=== PATIENT | female | born 1990 | race Caucasian/White ===

== ENCOUNTER 2017-10-15 14:51 | Inpatient (IN) | payer OTHER ==
--- NOTE | 2017-10-15 15:21 | EDPHY ---
H & P Time Seen by Provider: 10/15/17 15:00 HPI/ROS: CHIEF COMPLAINT: M1 Hold HISTORY OF PRESENT ILLNESS: This patient is a 27 y/o female with history of depression arriving with police on an M1 hold for psychiatric evaluation. Per the M1 report, the patient went to mental health services and seemed manic and gravely disabled, and had carved "HELP" into her skin. When asked about her history, she stats she has a "very well documented track record" of asking mental elda services for assistance, and is unwilling to provide further information. 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 She seems surprised to learn that she is on a mental health hold, but continues to repeat "thank you so much for asking" or "thank you so much for letting me know" after nearly every sentence. She does use marijuana but denies recent alcohol or illicit drug use. She denies any history of admissions due to psychiatric illness. She denies suicidal or homicidal ideation. No recent illness or further complaints. REVIEW OF SYSTEMS: A 10 point review of systems was performed and is negative with the exception of the elements mentioned in the history of present illness. Past Medical/Surgical History: Anxiety, PTSD, Depression, ADHD. 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 Occasional cigarette use. Marijuana use. No illicit drug use. Physical Exam: General Appearance: Alert, anxious Eyes: Pupils equal and round, no conjunctival pallor or injection ENT, Mouth: Mucous membranes moist Neck: Normal inspection Respiratory: Lungs are clear to auscultation Cardiovascular: Regular rate and rhythm Gastrointestinal: Abdomen is soft and non-tender Neurological: A&O, nonfocal exam Skin: Warm and dry, no rash Extremities: Nontender, no pedal edema Psychiatric: Pressured speech, tangential thought processes Constitutional: Initial Vital Signs Temperature (C) 37.1 C 10/15/17 14:51 Heart Rate 90 10/15/17 14:51 Respiratory Rate 14 10/15/17 14:51 Blood Pressure 153/87 H 10/15/17 14:51 O2 Sat (%) 98 10/15/17 14:51 O2 Delivery Mode Room Air Allergies/Adverse Reactions: animal dander Allergy (Verified 10/15/17 14:58) Home Medications: Medication Instructions Recorded Fexofenadine/Pseudoephedrine 1 each PO DAILY PRN 10/15/17 [Isabel-D 12 Hour Tablet] Herbals/Supplements -Info Only 1 ea PO DAILY 10/15/17 Ibuprofen [Motrin (*)] 200 - 400 mg PO Q6H PRN 10/15/17 Levonorgestrel [Kyleena] 1 each IY AD 10/15/17 Melatonin [Melatonin 3 MG (*)] 3 mg PO HS PRN 10/15/17 Sertraline HCl [Zoloft 100mg (*)] 150 mg PO DAILY 10/15/17 clonazePAM [Klonopin (*)] 0.5 mg PO BID PRN 10/15/17 Medical Decision Making ED Course/Re-evaluation: 27 y/o female on M1 Hold by police presents for psychiatric evaluation. She has pressured speech and tangential thought processes during my interview. Plan for UA tox screen, labs including CBC, chemistries, EtOH. Plan for mental health evaluation following medical clearance. 16:00 UA positive for marijuana. 16 15: The patient is becoming quite agitated. Zyprexa 5 mg ODT given. 2100: seen by mental health, plan for admission to . Ativan 1mg orally given for agitation prior to transfer. - Data Points Laboratory Results: Laboratory Results 10/15/17 16:09 10/15/17 16:09 10/15/17 10/15/17 10/15/17 16:09 16:09 15:15 WBC 8.98 10^3/uL 10^3/uL (3.80-9.50) RBC 4.92 10^6/uL 10^6/uL (4.18-5.33) Hgb 14.1 g/dL g/dL (12.6-16.3) Hct 42.6 % % (38.0-47.0) MCV 86.6 fL fL (81.5-99.8) MCH 28.7 pg pg (27.9-34.1) MCHC 33.1 g/dL g/dL (32.4-36.7) RDW 12.7 % % (11.5-15.2) Plt Count 323 10^3/uL 10^3/uL (150-400) MPV 9.2 fL fL (8.7-11.7) Neut % (Auto) 66.3 % % (39.3-74.2) Lymph % (Auto) 19.4 % % (15.0-45.0) [place] % (Auto) 11.7 % % (4.5-13.0) Eos % (Auto) 1.2 % % (0.6-7.6) Baso % (Auto) 0.7 % % (0.3-1.7) Nucleat RBC Rel Count 0.0 % % (0.0-0.2) Absolute Neuts (auto) 5.96 10^3/uL 10^3/uL (1.70-6.50) Absolute Lymphs (auto) 1.74 10^3/uL 10^3/uL (1.00-3.00) Absolute Monos (auto) 1.05 10^3/uL H 10^3/uL (0.30-0.80) Absolute Eos (auto) 0.11 10^3/uL 10^3/uL (0.03-0.40) Absolute Basos (auto) 0.06 10^3/uL 10^3/uL (0.02-0.10) Absolute Nucleated RBC 0.00 10^3/uL 10^3/uL (0-0.01) Immature Gran % 0.7 % % (0.0-1.1) Immature Gran # 0.06 10^3/uL 10^3/uL (0.00-0.10) Sodium 145 mEq/L mEq/L (135-145) Potassium 3.9 mEq/L mEq/L (3.5-5.2) Chloride 103 mEq/L mEq/L (97-110) Carbon Dioxide 19 mEq/l L mEq/l (22-31) Anion Gap 23 mEq/L H mEq/L (8-16) BUN 9 mg/dL mg/dL (7-23) Creatinine 0.6 mg/dL mg/dL (0.6-1.0) Estimated GFR > 60 Glucose 91 mg/dL mg/dL (70-100) Calcium 9.5 mg/dL mg/dL (8.5-10.4) Urine Opiates Screen NEGATIVE (NEGATIVE) Urine Barbiturates NEGATIVE (NEGATIVE) Ur Phencyclidine Scrn NEGATIVE (NEGATIVE) Ur Amphetamine Screen NEGATIVE (NEGATIVE) U Benzodiazepines Scrn NEGATIVE (NEGATIVE) Urine Cocaine Screen NEGATIVE (NEGATIVE) U Marijuana (THC) Screen NON-NEGATIVE H (NEGATIVE) Ethyl Alcohol < 10 mg/dL mg/dL (0-10) Medications Given: Discontinued Medications Lorazepam (Ativan) 1 mg PO EDNOW ONE Stop: 10/15/17 21:46 Last Admin: 10/15/17 21:47 Dose: 1 mg Olanzapine (Zyprexa Zydis) 5 mg PO EDNOW ONE Stop: 10/15/17 16:15 Last Admin: 10/15/17 16:50 Dose: Not Given Olanzapine (Zyprexa Im Injection) 10 mg IM EDNOW ONE Stop: 10/15/17 16:50 Last Admin: 10/15/17 16:55 Dose: 10 mg Departure - Departure Disposition: [facility] IP Clinical Impression: Kristi Condition: Fair Referrals: Patient,NotPresent [Unknown] - As per Instructions Report Scribed for: Alesia Maldonado Report Scribed by: Clau Salazar Date of Report: 10/15/17 Time of Report: 15:44 Physician Review and Approval Statement: 10/15/17 15:44 Portions of this note were transcribed by a medical record specialist. I personally performed a history, physical exam, medical decision making, and confirmed accuracy of information the transcribed note.
[2017-10-15] MEDS ORDERED: OLANZapine DISINTEGR 5 MG TAB PO ONE (16:14)
[2017-10-15 16:19] LABS: PLATELET COUNT 323 10^3/uL (150-400)
[2017-10-15] MEDS ORDERED: OLANZapine 10 MG/2 ML VIAL IM ONE (16:49)
[2017-10-15] MEDS ORDERED: LORazepam 1 MG TAB PO ONE (21:45)
[2017-10-15] MEDS ORDERED: NICOTINE POLACRILEX 2 MG GUM B PRN (22:57)
[2017-10-15] MEDS ORDERED: LORazepam 0.5 MG TAB PO PRN (22:57)
[2017-10-15] MEDS ORDERED: MAGNESIUM HYDROXIDE 30 ML UDCUP PO PRN (22:57)
[2017-10-15] MEDS ORDERED: MAG HYDROX/AL HYDROX/SIMETH 30 ML UDCUP PO PRN (22:59)
[2017-10-15] MEDS ORDERED: OLANZapine DISINTEGR 10 MG TAB PO PRN (23:00)
[2017-10-16] MEDS ORDERED: MELATONIN 3 MG TAB PO PRN (08:41)
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
[2017-10-16] MEDS: ACETAMINOPHEN 325 MG TAB PO PRN (23:46)
[2017-10-17] MEDS: clonazePAM 0.5 MG TAB PO PRN ×2 (02:13→09:32)
[2017-10-17 06:40] VITALS: TEMP 98; O2SAT 95
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
[2017-10-17] MEDS ORDERED: PROPOFOL/EMULSION 500 MG/50 ML BOTTLE IV ONE (18:07)
[2017-10-17] MEDS ORDERED: fentaNYL 100 MCG/2 ML INJ ONE ×2 (18:08)
[2017-10-17] MEDS ORDERED: ONDANSETRON 4 MG/2 ML VIAL ONE (18:14)
[2017-10-17] MEDS ORDERED: LIDOCAINE 2% 5 ML SDV ONE (18:14)
[2017-10-17] MEDS ORDERED: ROCURONIUM 50 MG/5 ML VIAL ONE (18:14)
[2017-10-17] MEDS ORDERED: OLANZapine DISINTEGR 10 MG TAB PO SCH (21:00)
[2017-10-18 06:17] VITALS: BP 148/90; PULSE 112; RESP 18
[2017-10-18] MEDS: ACETAMINOPHEN 325 MG TAB PO PRN (09:23)
--- NOTE | 2017-10-18 18:28 | BDS ---
[f rep st] BEHAVIORAL HEALTH DISCHARGE SUMMARY REASON FOR ADMISSION: Patient is a 27-year-old female with a history of anxiety and possib le cluster B personality characteristics. She was referred on an M1 hold from the [facility] at [facility] after presenting there in what appeared to be a manic state. She had been recently out of town at a meeting and stated that she had stayed up for 4 nights in a row and had got ten extremely excited about the subject matter and about possibilities for the future, and developed what appeared to be her first episode of agueda. When she returned home, her roommate and friends not iced that she was not herself and brought her to the [facility] where they stated she appeared manic, placed her on an M1 hold, and referred her to the [facility] ED for further florinda luation. She was then admitted to the [facility] inpatient unit. Full description of the events preceding admission can be found in her admission history dated 10/16/2017. ADMITTING DIAGNOSES: Acute manic episode, possible bipolar type 1 disorder, manic, severe with psych osis, cannabis use disorder moderate to severe, possible cannabis induced psychosis, possible cannabi s induced agueda, academic stress, financial stress, marginal supports and recent break. ADMITTING PHYSICAL EXAMINATION: Performed by Dr. Dago Santillan, revealed some chronic folliculitis , though no other acute findings. ADMISSION LABORATORY: CBC was normal. Serum chemistries were normal, with the exception of an anion gap of 23. Beta hCG was negative and urine drug screen was positive for marijuana. HOSPITAL COURSE: Patient was admitted to the [facility] inpatient unit on an M1 hold. She appeared to be manic as she was pressured, somewhat tangential and had some expansive grandiose and paranoid thinking. She was agreeable to treatment and was given Zyprexa 10 mg at h.s. She curly ated this well and it helped her sleep. She struggled with sleep the first night until she took the Zyprexa and then the second night of admission she slept well. On the day of discharge, the patient stated that she felt she was in her normal state of mental health. She was observed to be calmer and displaying linear thought process and no evidence of delusions. She was interacting appropriately w [facility] staff and peers. Completed a detailed safety and followup plan and did not appear to meet criter ia for short-term certification. I discussed with her at length my impression that she was in fact m anic and that she needed to continue to hold the sertraline and continue the Zyprexa as a primary ant i manic medication at least in the short term. I discussed the case with her outpatient psychiatrist at the [facility], Dr. Corley, who is in agreement with this. With patient's weight issue s, it is not likely an ideal long-term medicine but this can be transitioned in the outpatient area i f deemed necessary for ongoing management. Patient is agreeable to this and understanding of the pot ential for cross over treatment. The patient was seen by myself and the housekeeper caregiver on the day of discharge prior to the expirati on of her M1 hold. She is offered voluntary hospitalization through at least 1 more night to ensure continued stability of sleep, but declines. I did not feel that she met criteria for short-term cert ification at that point and allowed her to be discharged from the hospital with plan to follow up wit h the [facility]. CONDITION AT DISCHARGE: Stable. She was displaying no evidence of acute agueda or psychosis. She wa s compliant and tolerating her medication and was agreeable to outpatient followup. DISCHARGE MEDICATIONS: Zyprexa 10 mg p.o. q.h.s., clonazepam 0.5 mg p.o. b.i.d. daily p.r.n., Allegr a-D p.r.n., melatonin 3 mg h.s. p.r.n., and Kyleena IUD. DISCHARGE DIAGNOSES: Acute manic episode, possible bipolar 1 disorder, most recent episode manic, se florinda with psychosis, currently resolved, cannabis use disorder moderate to severe, academic stress, f inancial stress, marginal supports, recent break up. LEGAL COURSE: Patient was discharged at the expiration of her M1 hold. Patient was given written instructions and followup appointments at the time of discharge. She was a lso given written prescription for the Zyprexa. The patient's attitude was positive and forward thinking and she was tearful and appropriate at the t oral of discharge. Patient did not have advance directives, but she was a full code throughout her stay. There were no pending labs or studies at the time of discharge. /[id number]/MODL
== END 2017-10-18 12:53 | disposition home or self-care (01) | DRG 885 ==
LOC: BBEH 22:35
PROVIDERS: ADMIT Psychiatry & Neurology Psychiatry; ATTEND Psychiatry & Neurology Psychiatry
DX: F31.2 Bipolar disorder, current episode manic severe with psychotic features (principal); F12.90 Cannabis use, unspecified, uncomplicated; E66.9 Obesity, unspecified; L73.9 Follicular disorder, unspecified; F43.10 Post-traumatic stress disorder, unspecified; F90.9 Attention-deficit hyperactivity disorder, unspecified type
CPT/HCPCS: 80305; G0480; J2405; J2704; J3010

== ENCOUNTER 2018-07-11 17:00 | Inpatient (IN) | payer OTHER ==
[2018-07-11] MEDS ORDERED: OLANZapine 5 MG TAB PO ONE (18:08)
[2018-07-11] MEDS ORDERED: OLANZapine DISINTEGR 5 MG TAB PO ONE (18:22)
--- NOTE | 2018-07-11 18:53 | EDPHY ---
H & P Stated Complaint: off of meds-pt not willing to participate in triage Time Seen by Provider: 07/11/18 17:54 HPI/ROS: Chief Complaint: Manic HPI: 28-year-old transgender woman presenting with inability to sleep for the last 2 days. She has a history of a diagnosis of bipolar disorder. She has been off her medications. Friend who is with her states that the patient has been increasingly manic and not sleeping. Patient is here voluntarily. Denies being suicidal. No depression. Does have a history of suicidal in the past. No hallucinations. No nausea or vomiting. No physical complaints at this time. ROS: 10 systems were reviewed and were negative except those elements noted in the HPI. PMH: Bipolar disorder Social History: No smoking, no alcohol, no recreational drug use Family History: non-contributory Physical Exam: Gen: Awake, Alert, , pressured speech, labile affect HEENT: Nose: no rhinorrhea Eyes: PERRLA, EOMI Mouth: Moist mucosa Neck: Supple, no JVD Chest: nontender, lungs clear to auscultation Heart: S1, S2 normal, no murmur Abd: Soft, non-tender, no guarding Back: no CVA tenderness, no midline tenderness Ext: no edema, non-tender Skin: no rash Neuro: CN II-XII intact, Sensation grossly intact, Strength 5/5 in bilateral upper and lower extremities - Personal History LMP (Females 10-55): Unknown Current Tetanus/Diphtheria Vaccine: Unsure Current Tetanus Diphtheria and Acellular Pertussis (TDAP): Unsure - Medical/Surgical History Hx Asthma: No Hx Chronic Respiratory Disease: No Hx Diabetes: No Hx Cardiac Disease: No Hx Renal Disease: No Hx Cirrhosis: No Hx Alcoholism: No Hx HIV/AIDS: No Hx Splenectomy or Spleen Trauma: No Other PMH: anxiety, PTSD, depression, hayfever - Social History Smoking Status: Current some day smoker Constitutional: Initial Vital Signs Heart Rate 71 07/11/18 17:39 Respiratory Rate 18 07/11/18 17:39 O2 Sat (%) 98 07/11/18 17:39 O2 Delivery Mode Room Air Allergies/Adverse Reactions: animal dander Allergy (Verified 07/11/18 17:41) Home Medications: Medication Instructions Recorded Fexofenadine/Pseudoephedrine 1 each PO DAILY PRN 10/15/17 [Isabel-D 12 Hour Tablet] Herbals/Supplements -Info Only 1 ea PO DAILY 10/15/17 Ibuprofen [Motrin (*)] 200 - 400 mg PO Q6H PRN 10/15/17 Levonorgestrel [Kyleena] 1 each IY AD 10/15/17 Melatonin [Melatonin 3 MG (*)] 3 mg PO HS PRN 10/15/17 clonazePAM [Klonopin (*)] 0.5 mg PO BID PRN 10/15/17 OLANZapine [Zyprexa] 10 mg PO HS #30 tablet 10/18/17 Medical Decision Making ED Course/Re-evaluation: 28-year-old complaining of inability to sleep and agitation and agueda. Asking for medications to help her sleep. She denies suicidal ideation at this time. Will need a mental health evaluation. Will send medical clearance labs. Will give her 5 mg of Zyprexa as she is very disorganized and racing. Patient signed out to Dr. Mascorro pending medical clearance and mental health evaluation. - Data Points Laboratory Results: Laboratory Results 07/11/18 19:20 07/11/18 19:20 07/11/18 07/11/18 07/11/18 19:20 19:20 19:20 WBC 8.87 10^3/uL 10^3/uL (3.80-9.50) RBC 5.04 10^6/uL 10^6/uL (4.18-5.33) Hgb 14.7 g/dL g/dL (12.6-16.3) Hct 44.1 % % (38.0-47.0) MCV 87.5 fL fL (81.5-99.8) MCH 29.2 pg pg (27.9-34.1) MCHC 33.3 g/dL g/dL (32.4-36.7) RDW 13.0 % % (11.5-15.2) Plt Count 434 10^3/uL H 10^3/uL (150-400) MPV 8.9 fL fL (8.7-11.7) Neut % (Auto) 52.5 % % (39.3-74.2) Lymph % (Auto) 29.9 % % (15.0-45.0) Trigg % (Auto) 14.4 % H % (4.5-13.0) Eos % (Auto) 1.9 % % (0.6-7.6) Baso % (Auto) 0.8 % % (0.3-1.7) Nucleat RBC Rel Count 0.0 % % (0.0-0.2) Absolute Neuts (auto) 4.66 10^3/uL 10^3/uL (1.70-6.50) Absolute Lymphs (auto) 2.65 10^3/uL 10^3/uL (1.00-3.00) Absolute Monos (auto) 1.28 10^3/uL H 10^3/uL (0.30-0.80) Absolute Eos (auto) 0.17 10^3/uL 10^3/uL (0.03-0.40) Absolute Basos (auto) 0.07 10^3/uL 10^3/uL (0.02-0.10) Absolute Nucleated RBC 0.00 10^3/uL 10^3/uL (0-0.01) Immature Gran % 0.5 % % (0.0-1.1) Immature Gran # 0.04 10^3/uL 10^3/uL (0.00-0.10) Sodium 136 mEq/L mEq/L (135-145) Potassium 4.4 mEq/L mEq/L (3.5-5.2) Chloride 104 mEq/L mEq/L (97-110) Carbon Dioxide 19 mEq/l L mEq/l (22-31) Anion Gap 13 mEq/L mEq/L (6-14) BUN 9 mg/dL mg/dL (7-23) Creatinine 0.7 mg/dL mg/dL (0.6-1.0) Estimated GFR > 60 Glucose 102 mg/dL H mg/dL (70-100) Calcium 10.3 mg/dL mg/dL (8.5-10.4) Beta HCG, Qual NEGATIVE Ethyl Alcohol < 10 mg/dL mg/dL (0-10) Medications Given: Discontinued Medications Olanzapine (Olanzapine) 5 mg PO ONCE ONE Stop: 07/11/18 18:09 Last Admin: 07/11/18 18:15 Dose: 5 mg Olanzapine (Zyprexa Zydis) 5 mg PO EDNOW ONE Stop: 07/11/18 18:23 Last Admin: 07/11/18 18:29 Dose: Not Given Departure - Departure Condition: Fair Referrals: NONE *PRIMARY CARE P,. [Primary Care Provider] - As per Instructions
[2018-07-11 19:30] LABS: PLATELET COUNT 434 10^3/uL (150-400)
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
--- NOTE | 2018-07-11 23:08 | ASMTTCLDSP ---
[facility] Discharge Disposition Disposition: Answers: Admit Discharge Concerns/Recommendations: Notes: In consultation with [facility] ED physician, Tisha Mascorro MD and on-call psychiatrist, Shanel Cueto MD, both concurred that pt appears to meet 27-65 criteria requiring psychiatric hospitalization as pt appears to be at risk of harm to gravely disabled due to a mental illness condition. Pt was given the 3N prohibited belongings list while in the ED. For inpatient Shanel Cueto MD admission, the following psychiatrist agreed to accept patient for admission to [facility] Date Signed: 07/11/2018 11:07 PM Electronically Signed By:Frances Marshall
[2018-07-12] MEDS ORDERED: ACETAMINOPHEN 325 MG TAB PO PRN (01:00)
[2018-07-12] MEDS ORDERED: MAG HYDROX/AL HYDROX/SIMETH 30 ML UDCUP PO PRN (01:10)
[2018-07-12] MEDS ORDERED: OLANZapine DISINTEGR 5 MG TAB PO PRN (01:10)
[2018-07-12] MEDS ORDERED: NICOTINE POLACRILEX 2 MG GUM B PRN (01:10)
--- NOTE | 2018-07-12 08:23 | PDGENHP ---
History and Physical - Chief Complaint h/o bipolar, off meds - History of Present Illness 28 yo female with h/o bipolar disorder presents to ED with agueda symptoms, unable to sleep for >2 days. She stopped her medications. She has a h/o suicidality, but denies suicidal thoughts now. No reports of hallucinations or homicidality. In the ED, she was medically cleared and treated with 10 mg of zyprexa. On my evaluation this am, she is resting comfortably, does not have pressured speech. Denies significant past medical history, other than tendonitis in her elbow and knee. No fevers/chills, CP or SOB. History Information - Allergies/Home Medication List Allergies/Adverse Reactions: animal dander Allergy (Verified 07/11/18 17:41) Home Medications: Fexofenadine/Pseudoephedrine [Isabel-D 12 Hour Tablet] 1 each PO DAILY PRN 07/23 [Last Taken Unknown] Herbals/Supplements -Info Only 1 ea PO DAILY 10/15/17 [Last Taken Unknown] Ibuprofen [Motrin (*)] 200 - 400 mg PO Q6H PRN 10/15/17 [Last Taken 10/11/17] Levonorgestrel [Kyleena] 1 each IY .[id number] 10/15/17 [Last Taken Unknown] Melatonin [Melatonin 3 MG (*)] 3 mg PO HS PRN 10/15/17 [Last Taken Unknown] clonazePAM [Klonopin (*)] 0.5 mg PO BID PRN 10/15/17 [Last Taken Unknown] Herbals/Supplements -Info Only 1 ea PO DAILY 07/12/18 [Last Taken Unknown] Methylphenidate HCl [Methylphenidate ER] 54 mg PO DAILY 07/12/18 [Last Taken Unknown] lamOTRIGine [Lamotrigine] 100 mg PO DAILY 07/12/18 [Last Taken 07/11/18] I have personally reviewed and updated: family history, medical history, social history, surgical history - Past Medical History Additional medical history: bipolar - Surgical History Reports: no pertinent surgical hx - Family History Positive for: non-pertinent - Social History Smoking Status: Current some day smoker Alcohol Use: None Drug Use: None Review of Systems Review of Systems: ROS: 10pt was reviewed & negative except for what was stated in HPI & below Physical Exam Physical Exam: Temp Pulse Resp BP Pulse Ox 36.5 C 90 16 125/71 H 97 07/12/18 02:05 07/12/18 02:05 07/12/18 02:05 07/12/18 02:05 07/12/18 02:05 Constitutional: no apparent distress Eyes: PERRL Ears, Nose, Mouth, Throat: moist mucous membranes Cardiovascular: regular rate and rhythym Respiratory: no respiratory distress, clear to auscultation Gastrointestinal: normoactive bowel sounds, soft, non-tender abdomen Skin: warm Musculoskeletal: full muscle strength Neurologic: AAOx3 Psychiatric: interacting appropriately Lab Data & Imaging Review 07/11/18 19:20 07/11/18 19:20 WBC 8.87 10^3/uL (3.80-9.50) 07/11/18 19:20 RBC 5.04 10^6/uL (4.18-5.33) 07/11/18 19:20 Hgb 14.7 g/dL (12.6-16.3) 07/11/18 19:20 Hct 44.1 % (38.0-47.0) 07/11/18 19:20 MCV 87.5 fL (81.5-99.8) 07/11/18 19:20 MCH 29.2 pg (27.9-34.1) 07/11/18 19:20 MCHC 33.3 g/dL (32.4-36.7) 07/11/18 19:20 RDW 13.0 % (11.5-15.2) 07/11/18 19:20 Plt Count 434 10^3/uL (150-400) H 07/11/18 19:20 MPV 8.9 fL (8.7-11.7) 07/11/18 19:20 Neut % (Auto) 52.5 % (39.3-74.2) 07/11/18 19:20 Lymph % (Auto) 29.9 % (15.0-45.0) 07/11/18 19:20 Wilbarger % (Auto) 14.4 % (4.5-13.0) H 07/11/18 19:20 Eos % (Auto) 1.9 % (0.6-7.6) 07/11/18 19:20 Baso % (Auto) 0.8 % (0.3-1.7) 07/11/18 19:20 Nucleat RBC Rel Count 0.0 % (0.0-0.2) 07/11/18 19:20 Absolute Neuts (auto) 4.66 10^3/uL (1.70-6.50) 07/11/18 19:20 Absolute Lymphs (auto) 2.65 10^3/uL (1.00-3.00) 07/11/18 19:20 Absolute Monos (auto) 1.28 10^3/uL (0.30-0.80) H 07/11/18 19:20 Absolute Eos (auto) 0.17 10^3/uL (0.03-0.40) 07/11/18 19:20 Absolute Basos (auto) 0.07 10^3/uL (0.02-0.10) 07/11/18 19:20 Absolute Nucleated RBC 0.00 10^3/uL (0-0.01) 07/11/18 19:20 Immature Gran % 0.5 % (0.0-1.1) 07/11/18 19:20 Immature Gran # 0.04 10^3/uL (0.00-0.10) 07/11/18 19:20 Sodium 136 mEq/L (135-145) 07/11/18 19:20 Potassium 4.4 mEq/L (3.5-5.2) 07/11/18 19:20 Chloride 104 mEq/L (97-110) 07/11/18 19:20 Carbon Dioxide 19 mEq/l (22-31) L 07/11/18 19:20 Anion Gap 13 mEq/L (6-14) 07/11/18 19:20 BUN 9 mg/dL (7-23) 07/11/18 19:20 Creatinine 0.7 mg/dL (0.6-1.0) 07/11/18 19:20 Estimated GFR > 60 07/11/18 19:20 Glucose 102 mg/dL (70-100) H 07/11/18 19:20 Calcium 10.3 mg/dL (8.5-10.4) 07/11/18 19:20 Beta HCG, Qual NEGATIVE 07/11/18 19:20 Urine Opiates Screen NEGATIVE (NEGATIVE) 07/11/18 21:10 Urine Barbiturates NEGATIVE (NEGATIVE) 07/11/18 21:10 Ur Phencyclidine Scrn NEGATIVE (NEGATIVE) 07/11/18 21:10 Ur Amphetamine Screen NEGATIVE (NEGATIVE) 07/11/18 21:10 U Benzodiazepines Scrn NEGATIVE (NEGATIVE) 07/11/18 21:10 Urine Cocaine Screen NEGATIVE (NEGATIVE) 07/11/18 21:10 U Marijuana (THC) Screen NON-NEGATIVE (NEGATIVE) H 07/11/18 21:10 Ethyl Alcohol < 10 mg/dL (0-10) 07/11/18 19:20 Assessment & Plan Assessment: Decompensated bipolar with agueda - mood seems more stable after zyprexa. Further management per psych team. MSK issues - tendonitis of elbow, knee -prn ibuprofen Full code Please contact medicine team for issues/concerns.
--- NOTE | 2018-07-12 13:16 | ASMTBHMTP ---
Master Treatment Plan Master Treatment Plan Answers: Mood Instability with for: Psychosis Date: 07/12/2018 Diagnosis on Admission: Bipolar I Disorder with Psychotic Features 296.44 (F31.2) Expected length of stay: 3-5 Reason for admission: Notes: The patient uses "they/them/theirs" pronouns. They reported that their medication is no longer working. They reported a similar episode in October of 2017 in which they was hospitalized at [facility]. The patient presents with agueda symptoms including pressured speech, loose associations, tangential, and thought blocking. They mentioned multiple stressors or possible triggers including social issues, conflict with a professor, and post traumatic stress. Patient's stated presenting problems: Notes: The patient has a diagnostic history of Bipolar I Disorder with psychotic features. They are a current client with [facility]; their providers are Miriam Corley MD and Kya Singh. 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 Discharge criteria: Notes: Patient will demonstrate more stable mood by discharge. Initial disposition plan/considerations: Notes: The patient plans to return home to their apartment in [place], [place]. Master Treatment Plan Required Signatures Psychiatrist signature: Answers: Psychiatrist: RN on-shift signature: Answers: RN: Patient signature: Answers: Patient: Date Signed: 07/12/2018 01:16 PM Electronically Signed By:Autumn Ramirez
--- NOTE | 2018-07-12 14:56 | PDMN ---
Medical Necessity Medical necessity: Pt meets inpt criteria per MD order and [facility] [id number], Bipolar Disorders, Adult: Inpatient Care, 4 days. 28 y/o w/hx bipolar, on M1 hold due to being gravely disabled due to a mental illness, admitted w/bipolar 1 disorder w/psychotic features requiring inpt psychiatric hospitalization.
--- NOTE | 2018-07-12 17:18 | BAPA ---
DATE OF SERVICE: 07/12/2018 REASON FOR ADMISSION: The patient is a 28-year-old female [facility] after 2-3 days of changes in her behavior. She has a history of an atypical m quyen occurring last October, for which she was hospitalized at this facility, and had clear manic sympt oms in the setting of sleep deprivation, marijuana use, and Zoloft. This resolved rapidly with the Z yprexa, and she was ultimately discharged to outpatient followup at [facility]. She sees Dr. Miriam Corley there and was transitioned to long-term maintenance with Lamanthonyal. She states this h as gone well and she was started on methylphenidate several months ago to help with some chronic inat tention. She reports good effect from this but some erosion of her sleep and a few episodes of what may be hypomania. She reports the last 2-3 days where she felt excessively energetic, talkative, and somewhat intrusive and confrontational. She said she took the opportunity to confront several peopl e who she felt were being insensitive to her LGBT issues. She then also did not sleep for 2-3 nights , and her friends became concerned when she was sending rather bizarre texts at all hours of the day and night and appeared to be manic. They convinced her to come to the emergency department for evalu ation where she was placed on an M1 hold and admitted [facility]. When I meet with her today, she states that she is not manic and that she believes that the psychotro pic medicine she has taken over time may have created "what appears to you to be agueda." She states she knows she should not take the methylphenidate "because it's a stimulant and I get too revved up." She states, however, that she also believes the psychotropic medicines may in large part cause her symptoms. She is unable to be specific about this. She was described as extremely disorganized in t he [facility] report, and they were unable to get a meaningful history. The nurses on admission early this morning were also unable to get any meaningful history. She is more organized now but does skip from topic to topic and has trouble explaining herself. She states, however, that she believes this may be something more innate to her personality and not "biological." She recently started seeing a "new psychologist" at the [facility], who told her that she was not bipolar and that she had borderline p ersonality disorder. I informed her that I very much disagree and that she does seem to have biologi sandra driven episodes of agueda that are certainly multifactorial but are not character based. She is ultimately accepting of this and agreeable to continue psychotropic medicines. PAST PSYCHIATRIC HISTORY: Significant only for the previous admission to this facility in October. She sees Dr. Miriam Corley at the [facility] at the [facility]. She has a n active therapist there as well but states that they changed their insurance coverage to where you c an only have 20 total sessions in the [facility] per year instead of the previous 26. She states this is really threatening to interrupt her care and she is worried about this. ALLERGIES: No known medical allergies. CURRENT MEDICATIONS: 1. Lamictal 100 mg p.o. at bedtime. 2. Methylphenidate, dose unknown, 1 daily. 3. Clonazepam 0.5 mg twice daily. PAST MEDICAL HISTORY: Noncontributory. SOCIAL HISTORY: Patient is single, lives with a roommate in an apartment [place]. She states th at her roommate is "stupid and ignorant and a disgusting person." She relates this to the roommate h aving made "anti-Semitic remarks" in the past and to being loud when her boyfriend is over. 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 She has history of mar ijuana use, though denies any recent use. She also has a history of intermittent alcohol use, perhap s in a binge pattern, but states she has not been drinking. ADMITTING LABORATORY: CBC is normal. Serum chemistries are normal. Urine drug screen is positive f or marijuana. Alcohol is less than detectable. MENTAL STATUS EXAMINATION: A slightly obese, though healthy-appearing female. Her externa l appearance is most notable for her hair being shaved on one side and tousled on top, dyed the color s of the rainbow. She is pleasant and interactive, displaying a euthymic if not elevated, slightly e xpansive affect. Her mood is described as "fine." Her speech is slightly pressured, though fluent. Her thought process is tangential at times. Her thought content reveals no overt psychosis, though some mild persecutory thoughts that she is essentially being persecuted by most people due to her eth lauren heritage and gender identity. She is alert and oriented to person, place, time, and situation. Her sensorium is clear. She denies any thoughts of suicide, homicide, or violence at this time. Her insight and judgment appear to be fair. IMPRESSION: 1. Bipolar 1 disorder, most recent episode manic, severe with psychosis. 2. Cannabis use disorder, moderate to severe. 3. Alcohol use disorder, severity unknown. 4. Peer conflicts. 5. Marginal supports. The patient is a pleasant 28-year-old female who identifies with the 3rd person pleural "them" pronou n. She does not describe herself as a ghvazj-cv-axix transsexual, though does describe herself as "n on-binary." She also has a history of recurrent agueda which appears to be the primary issue at play at this time. She had a clear psychotic agueda back in October that resolved very quickly and was multi factorial, most likely drug induced. At this time, however, it appears to be more organic, though jame reeves was recently taking methylphenidate. She is hesitant about taking Zyprexa, though it is written as a p.r.n. She is agreeable to increasing Lamictal from 100 to 150 mg. The risks, benefits, and alte rnatives of both of these drugs were reviewed with her. PLAN: 1. Admit to behavior health services inpatient unit on an M1 hold. 2. Proceed with medications as above. 3. Monitor for course of her current symptoms and expect to see resolution as we did before. 4. Estimated length of stay is 3-5 days. /[id number]/MODL
[2018-07-12] MEDS: lamoTRIgine 25 MG TAB PO SCH (20:06)
[2018-07-12] MEDS: lamoTRIgine 100 MG TAB PO SCH (20:06)
[2018-07-12] MEDS: LORazepam 0.5 MG TAB PO PRN (21:47)
[2018-07-13] MEDS: IBUPROFEN 600 MG TAB PO PRN (13:15)
--- NOTE | 2018-07-13 14:27 | ASMTCMCOM ---
CM Note CM Note Notes: Pt. signed MTP, placed in chart. Pt. prefers "they/them/tehir" pronouns. Pt. reports feeling "good". Pt. stated "getting to sleep took some work". Pt. reports no issues with their current medications. Pt. stated they are not attending groups, stating"have not been helpful for me". Pt. stated they recently realized they have OCD and requested to speak with MD about medications and behavioral interventions for OCD. Pt. stated during prior hospitalization, they were placed in a CBT groups for being borderline, adding they never made it to any group therapy sessions. Pt. stated they are "still feeling shaky". Pt. stated they "don't have a purse, phone, wallet, bus pass or keys". Pt. stated they are afraid of their roommate, but didn't not elaborate. Pt. stated they can call their landlady to help get pt. back into apartment, since they do not have any keys. Pt. denied SI, HI, AVH and paranoia. Pt. presents as alert, guarded, suspicious of staff, cooperative, and good eye contact. Staff report pt. sleeping 6 hours and being medication complaint. Date Signed: 07/13/2018 02:27 PM Electronically Signed By:Rachael Red
[2018-07-13] MEDS ORDERED: MELATONIN 3 MG TAB PO PRN (17:28)
--- NOTE | 2018-07-13 17:29 | SOAPPROG ---
SOAP Progress Note Assessment/Plan: Assessment: 28 yo transgender male admitted d/t "not sleeping for two days" per roommate, no SI/HI, no grave disability. Plan: 07/13/18 17:28 1. Patient feels "fine" and ready to go home. They are glad to be off methylphenidate b/c they feel it interferes with their sleep and causes worse mood lability. 2. Patient feels "good" about increase of Lamictal to 150mg daily, denies any SE 's. 3. Patient would like to d/c on 07/14 when [facility] expires. 4. Patient has f/u with providers at [facility] next week. Subjective: Patient denies any SI/HI. They are feeling "better" since admission. Patient believes methylphenidate was "not good" for them to take b/c it interfered with patient's sleep and caused mood swings. Patient already has intake appointment for EMDR at [facility] sometime the week of Jul [address] Corley that week too. Objective: Vital Signs Temp Pulse Resp BP Pulse Ox 36.4 C 86 20 132/77 H 96 07/13/18 06:00 07/13/18 06:00 07/13/18 06:00 07/13/18 06:00 07/13/18 06:00 MSE: Affect: Euthymic Mood: "Better" TP: Linear, goal-directed TC: Denies any SI/HI Insight/Judgment: Improved - Time Spent With Patient Time Spent With Patient: 15" - Pending Discharge Pending Discharge Within 24 Hours: Yes Pending Discharge Within 48 Hours: No Pending Discharge Date: 07/14/18 Pending Discharge Time: 11:00 ICD10 Worksheet Patient Problems: Problems Problem Status Onset Kristi Acute
[2018-07-13] MEDS: lamoTRIgine 25 MG TAB PO SCH (20:44)
[2018-07-13] MEDS: lamoTRIgine 100 MG TAB PO SCH (20:44)
[2018-07-14] MEDS: LORazepam 0.5 MG TAB PO PRN ×2 (03:58→09:30)
[2018-07-14] MEDS: IBUPROFEN 600 MG TAB PO PRN ×2 (05:41→13:29)
[2018-07-14 06:55] VITALS: BP 114/74
--- NOTE | 2018-07-14 13:05 | ASMTBHDC ---
Notes Note: Notes: Pt. reports feeling "okay". Pt. stated they are "fairly empathetic" and is struggling to focus on themselves while on the unit. Pt. stated they feel "compelled to help, everyone". Pt. shared about realizing they needed help and reaching out for support. Pt. shared about current psychiatrist and needing to get off ritalin. Pt. stated they gain a lot of weight due to the medication prescribed during last hospitalization. Pt. reported they were "pre-diabetice from the medications". Pt. stated their binder caser at [facility] is Glenda Noriega and pt stated they "can follow up myself". Pt. stated upon discharge they will go to their friend who lives a few doors down, adding this friend can help pt get into their apartment. Pt. stated they can fill and take their medications upon discharge. Pt. denied SI, HI, AVH and paranoia. Pt. stated they are embarrassed they "accidently scared a bunch of people". Pt. asked about possibly changing their school project to something to support this unit. Pt. stated they like what this unit does for people and wants to help destigmatize mental health. Pt. presents as alert, talkative, bit guarded at times, good eye contact, and cooperative. Staff report pt. sleeping 7.5 hours and being medication compliant. Date Signed: 07/14/2018 01:05 PM Electronically Signed By:Rachael Red
--- NOTE | 2018-07-14 16:15 | BDS ---
REASON FOR ADMISSION: The patient is a 28-year-old female who presented to the ED with fri ends after 2 to 3 days of erratic behavior. She has a history of atypical agueda, which occurred last October for which she was hospitalized on and had clear manic symptoms in the setting of sleep deprivation, marijuana use, and Zoloft. This resolved rapidly with Zyprexa and she was ultimately d ischarged to outpatient followup with [facility]. She sees Dr. Miriam Corley and was transi tioned to long-term maintenance with Lamictal. She states that this has gone well. She was started on methylphenidate several months ago to help with some chronic inattention. She reports good effect , but says that this has caused sleep disturbance and a few episodes of what might be hypomania. She reports that for the last 2 to 3 days, she felt excessively energetic, talkative, and somewhat intru sive and confrontational. She said she took the opportunity to confront several people who she felt were being insensitive to her LGBT issues. She then did not sleep for 2 to 3 nights and friends aundrea me concerned when she was sitting rather bizarre texts at all hours of the day and night, and appeare d to be manic. They convinced her to come to the ED for evaluation where she was placed on M1 hold, admitted to the Behavioral Health inpatient unit. ADMITTING DIAGNOSES: 1. Bipolar 1 disorder, most recent episode manic, severe with psychosis. 2. Cannabis use disorder, moderate to severe. 3. Alcohol use disorder, severity unknown. 4. Peer conflicts. 5. Marginal supports. ADMITTING PHYSICAL EXAMINATION: Done by Dr. Denisse Rosales, please see her H and P for details. Ther e were no abnormal physical findings. Patient does have a medical history of chronic tendonitis of t he elbow and knee for which she takes p.r.n. ibuprofen. ADMISSION LABS: White cell count was 8.87, hemoglobin 14.7, hematocrit 44.1, platelet count 434. So dium 136, potassium 4.4, chloride 104, BUN 9, creatinine 0.7, glucose 102, calcium 10.3. Beta hCG wa s negative. Urine drug screen was positive for marijuana. Negative for all other drugs of abuse. E thyl alcohol level was undetected. HOSPITAL COURSE: The patient was seen by Dr. Avel Valle who did her initial psychiatric florinda luation. Dr. Valle is the psychiatrist who had also seen the patient during her previous hospitali zation on in October of 2017. Dr. Valle noted that the patient presented in October with clear manic symptoms in the setting of sleep deprivation, marijuana use, and Zoloft. He noted that the pa tariq resolved rapidly with Zyprexa and was ultimately discharged to followup treatment at the [facility] where patient has been seeing Dr. Miriam Corley and has bee n taking Lamictal 100 mg p.o. daily as maintenance treatment. Dr. Valle talked to the patient about increasing the patient's Lamictal dose. He initially talked about putting the patient back on Zyprexa, which had been helpful for the patient in the past, but th e patient was reluctant to be back on Zyprexa due to weight gain in the past when she had taken the m edication. Instead, the patient gave informed consent to increase her Lamictal dose from 100 mg to 1 50 mg p.o. daily. That medication change was made. The patient also felt that methylphenidate had n ot been a helpful medication for her. She reported that it caused significant sleep disruption and a lso led to increased energy levels and increased irritability and mood lability. The patient stated that she no longer wanted to be on methylphenidate. She was not prescribed that medication during he r hospital stay. The patient tolerated the increase of Lamictal to 150 mg p.o. daily. She noted david t she had no adverse effects from the increase in dose. When this MD met with the patient on 07/13/2018, the patient stated that she was feeling "fine" and w as ready to go home. She said that she was glad to be off methylphenidate because they feel it inter feres with her sleep and causes worst mood. They stated that her mood has been "good" during the hos pitalization, and they denied any side effects or adverse effects from titration of Lamictal to 150 m g total daily dose. Patient stated that they would like to discharge on 07/14, when their mental hea lt hold expires. They stated that they have followup appointments with [facility] providers, includ ing intake appointment for EMDR treatment at [facility] sometime the week of July 22, and a [facility] appointment with Dr. Corley that week as well. CONDITION AT DISCHARGE: The patient was stable. Their affect was euthymic. The patient behaved alannah ropriately during their hospitalization stay. They voiced no thoughts or concerns about suicide. Th ey denied any thoughts, plans or intents to hurt themself or anyone else. They denied any psychotic symptoms. There was no evidence of agueda present during the [facility] that the [facility] spent [facility]. They were compliant with medication and willing to see [facility] DISCHARGE MEDICATIONS: The patient was discharged on Lamictal 150 mg p.o. daily. Methylphenidate wa s discontinued and patient resumed taking their outpatient medications today, which include Isable, D, herbal supplements, oral contraceptive pill, and melatonin for sleep. DISCHARGE DIAGNOSES: 1. Bipolar disorder, not otherwise specified by history. 2. Cannabis use disorder, severe. 3. Alcohol use disorder, unknown severity. 4. Possible acute manic episode, secondary to methylphenidate use and possible marijuana use. 5. Lack of social support, conflict with peers. DISPOSITION: The patient was discharged from the hospital back to her apartment with a roommate. Th e patient has followup appointments with providers at [facility]. LEGAL COURSE: Patient was placed on a voluntary status prior to her discharge upon the expiration of her M1 hold. /[id number]/MODL
== END 2018-07-14 15:07 | disposition home or self-care (01) | DRG 885 ==
LOC: BBEH 07-12 00:58
PROVIDERS: ADMIT Psychiatry & Neurology Behavioral Neurology & Neuropsychiatry; ATTEND Psychiatry & Neurology Behavioral Neurology & Neuropsychiatry
DX: F31.9 Bipolar disorder, unspecified (principal); F12.959 Cannabis use, unspecified with psychotic disorder, unspecified; Z72.89 Other problems related to lifestyle; F15.959 Other stimulant use, unspecified with stimulant-induced psychotic disorder, unspecified
CPT/HCPCS: 80305; G0480

== ENCOUNTER 2018-10-27 13:57 | Emergency (ER) | payer OTHER ==
[2018-10-27 14:02] VITALS: BP 143/89
--- NOTE | 2018-10-27 14:17 | EDPHY ---
H & P Time Seen by Provider: 10/27/18 14:07 HPI/ROS: CHIEF COMPLAINT: Pain and swelling near the eye HISTORY OF PRESENT ILLNESS: Started last and the medial side of her left eye with some eyelid swelling but no discharge drainage or change in her vision. Was seen on Sunday at the [facility] and started on Bactrim. Presents today with increasing swelling and redness and pain. REVIEW OF SYSTEMS: No headache, no fever or chills. PAST MEDICAL HISTORY: Includes anxiety and depression, foot fractures, wisdom tooth surgery Social history: Student General Appearance: Alert and conversant, cooperative. Pupils equal reactive extraocular motion intact. Normal tympanic membranes bilaterally. There is no conjunctival erythema exudate or eyelid swelling. No proptosis or periorbital swelling. She has 5 mm diameter red swollen area medially to the left eye, does not involve the sclera or the orbit. Emergency Department course/MDM: Likely Dacrocystitis. Will change antibiotic to Augmentin and refer her to Ophthalmology tomorrow. Warned ophthalmology follow-up is mandatory, may need drainage. Smoking Status: Former smoker Constitutional: Initial Vital Signs Temperature (C) 37 C 10/27/18 13:58 Heart Rate 86 10/27/18 13:58 Respiratory Rate 18 10/27/18 13:58 Blood Pressure 143/89 H 10/27/18 13:58 O2 Sat (%) 95 10/27/18 13:58 O2 Delivery Mode Room Air Allergies/Adverse Reactions: animal dander Allergy (Verified 07/11/18 17:41) Home Medications: Medication Instructions Recorded Fexofenadine/Pseudoephedrine 1 each PO DAILY PRN 10/15/17 [Isabel-D 12 Hour Tablet] Herbals/Supplements -Info Only 1 ea PO DAILY 10/15/17 Levonorgestrel [Kyleena] 1 each [id number] [id number] 10/15/17 Melatonin [Melatonin 3 MG (*)] 3 mg PO HS PRN 10/15/17 Herbals/Supplements -Info Only 1 ea PO DAILY 07/12/18 lamOTRIGine [Lamotrigine] 100 mg PO DAILY 07/12/18 lamoTRIgine [LaMICtal] 50 mg PO HS 14 Days tab 07/14/18 lamoTRIgine [LamICTAL 100 MG (*)] 100 mg PO HS tab 07/14/18 Amoxicillin/Clavulanate Pot 875 mg PO BID #20 tab 10/27/18 [Augmentin 875 mg tab] Sulfamethox/Tmp 10/27/18 MDM/Departure - Depart Disposition: Home, Routine, Self-Care Clinical Impression: Dacrocystitis Qualifiers: Laterality: left Qualified Code(s): H04.302 - Unspecified dacryocystitis of left lacrimal passage Condition: Good Instructions: Amoxicillin/Clavulanate Potassium (By mouth) Additional Instructions: Follow-up in the next 24-48 hours with Ophthalmology. Return if you get any decrease in her vision or actual pain in your eye. Prescriptions: Amoxicillin/Clavulanate Pot [Augmentin 875 mg tab] 875 mg PO BID #20 tab Referrals: Jodie Osman MD [Medical Doctor] - 10/28/18
== END 2018-10-27 14:36 | disposition home or self-care (01) ==
DX: H04.302 Unspecified dacryocystitis of left lacrimal passage (principal)